=== PATIENT | female | born 1950 | race Two or more races ===

== ENCOUNTER 2017-12-02 21:44 | Emergency (ER) | payer OTHER, MEDICAID ==
[~2017-12-02] VITALS: Ht 167.6 cm; Wt 68.0 kg
--- NOTE | 2017-12-02 21:49 | NUR ---
Brought in by [facility] to Room 2B for complaints of lower abdominal pain, worse today.
[2017-12-02] MEDS ORDERED: ETAN50DI2 SQ (22:02)
--- NOTE | 2017-12-02 22:37 | NUR ---
Seen and evaluated by Dr. Zambrano.
[2017-12-02] MEDS ORDERED: ONDANSETRON 4 MG/2 ML VIAL IV ONE (22:45)
[2017-12-02] MEDS ORDERED: IV NORMAL SALINE 1000 ML BAG IV ONE (22:45)
[2017-12-02] MEDS ORDERED: HYDROMORPHONE 1 MG/1 ML DISP.SYRIN IV ONE (22:45)
[2017-12-02 23:14] LABS: BASOPHILS # (AUTO) 0.1 K/uL (0.0-8.0); BASOPHILS % (AUTO) 0.7 % (0.0-2.0); EOSINOPHILS # (AUTO) 0.2 K/uL (0.0-0.7); EOSINOPHILS % (AUTO) 2.3 % (0.0-7.0); HEMATOCRIT 30.5 % (31.2-41.9); HEMOGLOBIN 9.9 g/dL (10.9-14.3); LYMPHOCYTES # (AUTO) 1.5 K/uL (20.0-40.0); LYMPHOCYTES % (AUTO) 18.7 % (20.5-51.5); MEAN CORPUSCULAR HEMOGLOBIN 26.2 uug (24.7-32.8); MEAN CORPUSCULAR HGB CONC 33 g/dL (32.3-35.6); MEAN CORPUSCULAR VOLUME 80.7 fL (75.5-95.3); MONOCYTES # (AUTO) 0.6 K/uL (2.0-10.0); NEUTROPHILS # (AUTO) 5.5 K/uL (1.8-8.9); NEUTROPHILS % (AUTO) 70.3 % (38.5-71.5); PLATELET COUNT (AUTO) 342 K/uL (179-408); RED BLOOD CELL COUNT(AUTO) 3.78 MIL/uL (3.63-4.92); WHITE BLOOD COUNT (AUTO) 7.9 K/uL (3.8-11.8)
[2017-12-02] MEDS ORDERED: ONDANSETRON 4 MG/2 ML VIAL ONE (23:17)
[2017-12-02] MEDS ORDERED: HYDROMORPHONE 2 MG/1 ML DISP.SYRIN ONE (23:18)
[2017-12-02 23:19] LABS: BILIRUBIN,DIRECT 0.1 mg/dL (0.0-0.2); BILIRUBIN,TOTAL 0.2 mg/dL (0.2-1.0); CREATININE 0.7 mg/dL (0.6-1.3); TOTAL PROTEIN, SERUM 7.1 g/dL (6.4-8.2)
--- NOTE | 2017-12-02 23:21 | NUR ---
Brought to CT Scan per good by Zaki spiral tube winder helper.
[2017-12-02 23:23] LABS: POTASSIUM 2.8 mmol/L (3.5-5.1)
--- NOTE | 2017-12-02 23:23 | NUR ---
Lab called, Pt potassium 2.8. notified.
--- NOTE | 2017-12-02 23:50 | NUR ---
Back from CT, procedure completed.
--- NOTE | 2017-12-02 23:52 | NUR ---
Razo Cath Fr. 16 inserted aseptically and atraumatically after adequate explanations. Urine spec sent to lab.
[2017-12-03 00:20] LABS: *BILIRUBIN,URIN NEGATIVE (NEGATIVE); *BLOOD, URINE Trace-intact (NEGATIVE); *CLARITY,URINE CLOUDY (CLEAR); *COLOR,URINE YELLOW (YELLOW); *KETONES,URINE NEGATIVE (NEGATIVE); *PROTEIN,URINE 2+ (NEGATIVE); LEUKOCYTE ESTERASE ,URINE 3+ (NEGATIVE); NITRITE, URINE POSITIVE (NEGATIVE); PH,URINE 6.5 (5.0-8.0); UGLUCOSE NEGATIVE (NEGATIVE)
[2017-12-03 00:33] LABS: BACTERIA,URINE MANY /HPF (NONE SEEN); SQUAMOUS EPITHELIAL CELL,UR FEW /HPF (NONE SEEN); WBC,URINE 80-100 /HPF (0-3)
--- NOTE | 2017-12-03 01:48 | NUR ---
[facility] EDUARP called. Spoke with Josey. Will have Newcomb call Dr Zambrano
[2017-12-03] MEDS ORDERED: ONDANSETRON IV *ER 4 MG/2 ML VIAL IV ONE ×2 (02:00→04:30)
[2017-12-03] MEDS ORDERED: MORPHINE SULFATE 4 MG/1 ML DISP.SYRIN IV ONE (02:00)
[2017-12-03] MEDS ORDERED: MORPHINE SULFATE 4 MG/1 ML DISP.SYRIN ONE (02:09)
[2017-12-03] MEDS ORDERED: ONDANSETRON 4 MG/2 ML VIAL ONE ×3 (02:09→08:29)
[2017-12-03] MEDS ORDERED: METRONIDAZOLE 500 MG/NS 100 ML PIGGYBACK IV ONE (02:45)
[2017-12-03] MEDS ORDERED: LEVOFLOXACIN 750 MG/D5W 150 ML PIGGYBACK IV ONE (02:45)
--- NOTE | 2017-12-03 02:45 | NUR ---
Aydin LONGORIA returned call and spoke with Dr. Zambrano. CT abd/pelvis and CXR reports faxed to by Abdelrahman Webster RN.
[2017-12-03] MEDS ORDERED: LEVOFLOXACIN 750MG/D5W 150 ML IV ONE (02:52)
[2017-12-03] MEDS ORDERED: METRONIDAZOLE 500 MG/NS 100ML 100 ML IV ONE (02:53)
--- NOTE | 2017-12-03 03:30 | NUR ---
Expressing desire to be admitted instead here at [facility] but understands reason for transfer arrangements. Pt signed Patient Transfer Acknowledgement form.
--- NOTE | 2017-12-03 04:00 | NUR ---
CALLED NARESH ZAMAN REQUESTED BY DR HARTLEY FOR CONSULT. WAITING FOR CALL BACK
--- NOTE | 2017-12-03 04:20 | NUR ---
Phone call made to Dr. Ji Fountain. Awaiting call back at this time.
--- NOTE | 2017-12-03 05:00 | NUR ---
CALLED NARESH REID. WAITING FOR CALL BACK
--- NOTE | 2017-12-03 05:00 | NUR ---
Pt has been nauseated; emesis x2 to moderate amount brownish fluid. Has received IV Zofran x3 total, with relief. Now pt sleeping and in no apparent acute distress.
--- NOTE | 2017-12-03 05:33 | NUR ---
Dr Fountain spoke with Dr Zambrano at this time.
--- NOTE | 2017-12-03 05:42 | NUR ---
DR HARTLEY SPOKE WITH DR KEVIN LONGORIA FROM [facility]. DR BROWN WILL TRANSFER PATIENT TO [facility]. WAITING FOR TRANSFER INFO
--- NOTE | 2017-12-03 05:43 | NUR ---
spoke with Aydin LONGORIA. Plans to transfer pt to [facility].
[2017-12-03] MEDS: POTASSIUM CHLORIDE 50 ML IV SCH ×2 (06:13→07:07)
--- NOTE | 2017-12-03 06:13 | NUR ---
Serum potassium level 2.[address] Zambrano ordered IV KCl total 20 mEq. Started first of two bags IV KCl.
[2017-12-03] MEDS ORDERED: IV NORMAL SALINE 1000 ML BAG IV ONE (06:15)
[2017-12-03] MEDS ORDERED: POTASSIUM CHLORIDE 50 ML ONE ×2 (06:17→07:11)
[2017-12-03] MEDS ORDERED: PANTOPRAZOLE SODIUM IV 80 MG in IV DEXTROSE 5% 100 ML IV ONE (07:00)
[2017-12-03] MEDS ORDERED: PANTOPRAZOLE SODIUM 40 MG VIAL ONE (07:04)
--- NOTE | 2017-12-03 07:07 | NUR ---
Above IV KCl infusion completed and second bag started. Endorsed to Day Shift CECY Rogers.
--- NOTE | 2017-12-03 07:14 | NUR ---
IV Protonix infusion started at 0700 and ended at 0714.
--- NOTE | 2017-12-03 07:36 | NUR ---
sbar report received from [facility]. Patient waiting for Opp steel pickler/ Patient expressed preference to stay here. advised re: insurance
--- NOTE | 2017-12-03 07:42 | NUR ---
patient is receiving 2nd dose of IV kcl Toatal dose 20meq
[2017-12-03] MEDS ORDERED: HYDROMORPHONE 2 MG/1 ML DISP.SYRIN ONE (08:29)
[2017-12-03] MEDS ORDERED: HYDROMORPHONE 1 MG/1 ML DISP.SYRIN IV ONE (08:30)
[2017-12-03] MEDS ORDERED: ONDANSETRON 4 MG/2 ML VIAL IV ONE (08:30)
--- NOTE | 2017-12-03 08:31 | NUR ---
medicated for abdominal pain and nausea. Paraamedics here to pick remover patient. report given to Blanca TURNER and to paramedics as kelle.
[2017-12-03 09:01] VITALS: BP 109/61
== END 2017-12-03 09:02 | disposition short-term general hospital (02) ==
LOC: ER 21:46
DX: K27.5 Chronic or unspecified peptic ulcer, site unspecified, with perforation (principal); R35.0 Frequency of micturition; Z88.2 Allergy status to sulfonamides; Z88.8 Allergy status to other drugs, medicaments and biological substances
CPT/HCPCS: 36415; 70030-TC; 71045; 83605; 83690; 85025; 87040; 87086; 93005; A4663; C9113; J1170; J1956; J2270; J2405; J3480; J3490; J7030; J7060

== ENCOUNTER 2020-05-30 17:21 | Inpatient (IN) | payer OTHER ==
[~2020-05-30] VITALS: Ht 167.6 cm; Wt 63.5 kg
[~2020-05-30 17:21] MED LIST: ETAN50SY SQ
[2020-05-30] MEDS ORDERED: IV NORMAL SALINE 1000 ML BAG IV ONE (17:30)
[2020-05-30] MEDS ORDERED: ACETAMINOPHEN ES 500 MG TABLET PO ONE (17:30)
[2020-05-30] MEDS ORDERED: ACETAMINOPHEN ES 500 MG TABLET ONE (17:48)
--- NOTE | 2020-05-30 18:18 | NUR ---
unable to obtain a 2nd IV line, and unable to draw blood d/t bombsight specialist attempting twice and unsuccessul. Per Mary Jo, bombsight specialist who attempted to draw, states there is no other bombsight specialist until 1900.
[2020-05-30 18:40] LABS: *BILIRUBIN,URIN 1+ (NEGATIVE); *BLOOD, URINE 3+ (NEGATIVE); *COLOR,URINE YELLOW (YELLOW); *KETONES,URINE TRACE (NEGATIVE); LEUKOCYTE ESTERASE ,URINE 3+ (NEGATIVE); NITRITE, URINE NEGATIVE (NEGATIVE); UGLUCOSE TRACE (NEGATIVE)
[2020-05-30 18:47] LABS: *CLARITY,URINE TURBID (CLEAR); BACTERIA,URINE MODERATE /HPF (NONE SEEN); RBC,URINE 80-100 /HPF (0-3); SQUAMOUS EPITHELIAL CELL,UR MODERATE /HPF (NONE SEEN); WBC,URINE TNTC /HPF (0-3)
--- NOTE | 2020-05-30 18:56 | NUR ---
femoral stick done by Dr. Hare for blood specimen collection.
--- NOTE | 2020-05-30 19:02 | NUR ---
Report given to Alix.
[2020-05-30 19:07] LABS: BASOPHILS % (AUTO) 0.2 % (0.0-2.0); EOSINOPHILS % (AUTO) 0.1 % (0.0-7.0); HEMATOCRIT 33.5 % (31.2-41.9); HEMOGLOBIN 11.1 g/dL (10.9-14.3); LYMPHOCYTES # (AUTO) 0.4 K/uL (20.0-40.0); LYMPHOCYTES % (AUTO) 3.8 % (20.5-51.5); MEAN CORPUSCULAR HEMOGLOBIN 29.8 uug (24.7-32.8); MEAN CORPUSCULAR HGB CONC 33 g/dL (32.3-35.6); MONOCYTES # (AUTO) 0.1 K/uL (2.0-10.0); NEUTROPHILS % (AUTO) 94.9 % (38.5-71.5); PLATELET COUNT (AUTO) 184 K/uL (179-408); RED BLOOD CELL COUNT(AUTO) 3.72 MIL/uL (3.63-4.92); WHITE BLOOD COUNT (AUTO) 10.5 K/uL (3.8-11.8)
[2020-05-30 19:14] LABS: CREATININE 1.7 mg/dL (0.6-1.3); POTASSIUM 3.1 mmol/L (3.5-5.1)
[2020-05-30 19:27] LABS: BILIRUBIN,TOTAL 0.9 mg/dL (0.2-1.0); TOTAL PROTEIN, SERUM 5.8 g/dL (6.4-8.2)
[2020-05-30] MEDS ORDERED: CEFTRIAXONE 1 G in IV DEXTROSE 5% 50 ML IV ONE (19:30)
[2020-05-30] MEDS ORDERED: IV NS 1000 ML 1,000 ML IV ONE (19:30)
--- NOTE | 2020-05-30 19:30 | NUR ---
Received patient in shift report
[2020-05-30] MEDS ORDERED: CEFTRIAXONE /D5W 50ML IVPB **ER PYXIS IV ONE (19:51)
[2020-05-30 19:53] LABS: ABG BASE EXCESS -10.8 mmol/L; ABG HCO3 11.7 mmol/L; ABG PCO2 18.7 mmHg (35.0-45.0); ABG PH 7.414 (7.350-7.450); ABG PO2 90.2 mmHg (75.0-100.0); ABG SITE RIGHT RADIAL; ABG TOTAL HEMOGLOBIN 11.2 G/dL (12.0-16.0); COHb 0.8 % (0.5-1.5); MetHb 0.3 % (0.0-1.5); O2Hb 96.4 % (94.0-97.0); VENT MODE Room Air
[2020-05-30] MEDS ORDERED: NOREPINEPHRINE BITARTRATE 8 MG in IV NORMAL SALINE 242 ML IV PRN (20:00)
[2020-05-30] MEDS ORDERED: PIPERACILLIN SODIUM/TAZOBACTAM 3.375 G in IV DEXTROSE 5% 50 ML IV ONE (20:00)
[2020-05-30] MEDS ORDERED: PIPERACILLIN/TAZOBACTAM/D5W 50 ML IV ONE (20:18)
[2020-05-30] MEDS ORDERED: NOREPINEPHRINE BITARTRATE 4 MG/4 ML VIAL IV ONE (20:22)
--- NOTE | 2020-05-30 20:52 | NUR ---
Dr. Hare on panel call with Dr. Efra Veliz.
[2020-05-30] MEDS ORDERED: AZITHROMYCIN IV 500 MG in IV DEXTROSE 5% 250 ML IV ONE (21:00)
[2020-05-30] MEDS ORDERED: AZITHROMYCIN 500MG/ D5W 250ML IVPB **ER PYXIS ONLY IV ONE (21:06)
[2020-05-30] MEDS ORDERED: AZITHROMYCIN IV 500 MG in IV DEXTROSE 5% 250 ML IV SCH (21:45)
[2020-05-30] MEDS ORDERED: POTASSIUM CHLORIDE 20 MEQ in IV D5/ 0.9% NACL 1,000 ML IV PRN (21:45)
[2020-05-30] MEDS ORDERED: ONDANSETRON 4 MG/2 ML VIAL IV PRN (21:45)
[2020-05-30] MEDS ORDERED: PHENYLEPHRINE IV 100 MG in IV NORMAL SALINE 240 ML IV PRN (21:45)
[2020-05-30] MEDS ORDERED: ACETAMINOPHEN 650 MG SUPP.RECT RC PRN (21:45)
[2020-05-30] MEDS ORDERED: MORPHINE SULFATE 2 MG/1 ML DISP.SYRIN IV PRN (21:45)
[2020-05-30] MEDS ORDERED: CEFTRIAXONE 1 G in IV DEXTROSE 5% 50 ML IV SCH (21:45)
--- NOTE | 2020-05-31 | NUR ---
Femoral triple lumen central line placed by MD mishra
[2020-05-31] MEDS ORDERED: NOREPINEPHRINE BITARTRATE 4 MG/4 ML VIAL IV ONE ×4 (00:47→06:03)
[2020-05-31] MEDS ORDERED: IV DEXTROSE 5% +20 MEQ KCL 1,000 ML IV ONE (00:53)
[2020-05-31] MEDS ORDERED: METO25TA6 PO (00:55)
[2020-05-31] MEDS ORDERED: CHOL10002 PO (00:55)
[2020-05-31] MEDS ORDERED: LORA10TA7 PO (00:55)
[2020-05-31] MEDS ORDERED: TAMS-3 PO (00:55)
[2020-05-31] MEDS ORDERED: ONDA4TAB5 PO (00:55)
[2020-05-31] MEDS ORDERED: AZEL137S7 (00:55)
[2020-05-31] MEDS ORDERED: HYDR-3980 PO (00:55)
[2020-05-31] MEDS ORDERED: DICL100G16 TP (00:55)
[2020-05-31] MEDS ORDERED: MONT10TA22 PO (00:55)
[2020-05-31] MEDS ORDERED: MULT-594 PO (00:55)
[2020-05-31] MEDS ORDERED: SENN-18 PO (00:55)
[2020-05-31] MEDS ORDERED: DIPH25CA83 PO (00:55)
[2020-05-31] MEDS ORDERED: ASCO500C18 PO (00:55)
[2020-05-31] MEDS ORDERED: POTA10TA21 PO (00:55)
[2020-05-31] MEDS ORDERED: DOCU-141 PO (00:55)
[2020-05-31] MEDS ORDERED: CICL15CR12 TP (00:55)
[2020-05-31] MEDS ORDERED: PHENYLEPHRINE 10 MG/1 ML VIAL ONE (06:00)
--- NOTE | 2020-05-31 06:41 | NUR ---
No signs of acute distress noted
[2020-05-31] MEDS ORDERED: NOREPINEPHRINE BITARTRATE 32 MG in IV NORMAL SALINE 218 ML IV PRN (06:45)
[2020-05-31 07:11] LABS: BASOPHILS # (AUTO) 0.1 K/uL (0.0-8.0)
[2020-05-31 07:16] LABS: BASOPHILS % (AUTO) 0.1 % (0.0-2.0); EOSINOPHILS # (AUTO) 13.6 K/uL (0.0-0.7); HEMATOCRIT 31.6 % (31.2-41.9); LYMPHOCYTES # (AUTO) 0.8 K/uL (20.0-40.0); LYMPHOCYTES % (AUTO) 1.9 % (20.5-51.5); MEAN CORPUSCULAR HEMOGLOBIN 29.2 uug (24.7-32.8); MEAN CORPUSCULAR HGB CONC 32 g/dL (32.3-35.6); MEAN CORPUSCULAR VOLUME 92.7 fL (75.5-95.3); MONOCYTES # (AUTO) 0.7 K/uL (2.0-10.0); MONOCYTES % (AUTO) 1.6 % (0.0-11.0); NEUTROPHILS # (AUTO) 28.7 K/uL (1.8-8.9); NEUTROPHILS % (AUTO) 65.4 % (38.5-71.5); PLATELET COUNT (AUTO) 154 K/uL (179-408); RED BLOOD CELL COUNT(AUTO) 3.41 MIL/uL (3.63-4.92)
[2020-05-31 07:25] LABS: WHITE BLOOD COUNT (AUTO) 43.8 K/uL (3.8-11.8)
[2020-05-31 07:36] LABS: ALKALINE PHOSPHATASE 109 U/L (50-136); ASPARTATE AMINOTRANSFERASE 27 U/L (15-37); CARBON DIOXIDE 14 mmol/L (21-32); CHLORIDE 102 mmol/L (98-107); CHOLESTEROL 61 mg/dL (<200); CREATININE 1.8 mg/dL (0.6-1.3); GLUCOSE 170 mg/dL (74-106); HDL CHOLESTEROL 11 mg/dL (40-60); MAGNESIUM 1.4 mg/dL (1.8-2.4); PHOSPHOROUS 1.8 mg/dL (2.5-4.9); POTASSIUM 3.6 mmol/L (3.5-5.1); TOTAL PROTEIN, SERUM 5.8 g/dL (6.4-8.2); TRIGLYCERIDES 143 MG/DL (30-150); UREA NITROGEN, BLOOD 30 mg/dL (7-18)
[2020-05-31 07:45] LABS: ALANINE AMINOTRANSFERASE < 6 U/L (14-59)
[2020-05-31] MEDS: MAGNESIUM SULFATE/D5W 100 ML IV SCH ×2 (07:45→08:45)
[2020-05-31] MEDS ORDERED: IV NS 1000 ML 1,000 ML IV PRN (07:45)
[2020-05-31 08:04] LABS: THYROID STIMULATING HORMONE 0.486 mIU/mL (0.358-3.740)
--- NOTE | 2020-05-31 08:09 | NUR ---
recieved critical value of lactic acid, not contacted it is trending down. Primary nurse Abhishek made aware.
[2020-05-31] MEDS ORDERED: MAGNESIUM SULFATE/D5W 400 ML ONE (08:34)
[2020-05-31] MEDS ORDERED: ONDANSETRON 4 MG/2 ML VIAL ONE (08:55)
[2020-05-31 08:56] VITALS: BP 87/53
[2020-05-31] MEDS ORDERED: ENOXAPARIN SODIUM 30 MG/0.3 ML DISP.SYRIN SUBCUT SCH (09:00)
[2020-05-31] MEDS ORDERED: DEXAMETHASONE SOD PHOSPHATE 4 MG INJ IV SCH (09:00)
[2020-05-31] MEDS ORDERED: FAMOTIDINE. 20 MG/2 ML VIAL IV SCH (09:00)
[2020-05-31] MEDS ORDERED: PANTOPRAZOLE SODIUM 40 MG VIAL IV SCH (09:00)
[2020-05-31] MEDS ORDERED: DEXAMETHASONE SOD PHOSPHATE 10 MG INJ ONE (09:07)
[2020-05-31] MEDS ORDERED: ENOXAPARIN SODIUM 30 MG/0.3 ML DISP.SYRIN ONE (09:07)
[2020-05-31] MEDS ORDERED: FAMOTIDINE. 20 MG/2 ML VIAL IV ONE (09:08)
--- NOTE | 2020-05-31 09:15 | NUR ---
DR JOSEPH EVALUATED THE PT. PT WAS MEDICATED ACCORDING TO DR JOSEPH ORDERS. PT TOLERATED TO MEDICATION WITHOUT COMPLICATIONS. CONTINUE TO MONITOR THE PT.
[2020-05-31] MEDS ORDERED: MORPHINE SULFATE 2 MG/1 ML DISP.SYRIN ONE (09:18)
[2020-05-31] MEDS ORDERED: SODIUM BICARBONATE 8.4% 50 MEQ/50 ML DISP.SYRIN IV ONE (09:27)
[2020-05-31] MEDS ORDERED: EPINEPHRINE 1:10,000 1 MG/10 ML DISP.SYRIN MC ONE (09:27)
--- NOTE | 2020-05-31 09:46 | NUR ---
PT STATED THAT SHE FEELS MORE SHORT OF BREATH. PT WAS PLACED ON O2 3 LITERS VIA N/C
--- NOTE | 2020-05-31 10:33 | NUR ---
BATSHEVA YASMEEN WAS CALLED AT 1008 BECAUSE PT BECOME UNRESPONSIVE WITHOUT PALPABLE H/R, AND LOW B/P, AND LOW O2sat. ALS CPR WAS STARTED UNDER DIRECT SUPERVISION OF DR BREWER.
--- NOTE | 2020-05-31 10:36 | NUR ---
AT [id number] PT WAS PRONOUNCED BY DR BREWER, CPR WAS STOPPED.
--- NOTE | 2020-05-31 11:38 | NUR ---
PT'S SON MERNA ODOM WAS CALLED AT 0945 AND AT 1005 . MESSAGE WAS LEFT.
--- NOTE | 2020-05-31 12:01 | NUR ---
[employer] WAS CALLED , TALKED TO KARLO, PT CASE WAS DECLINED, CASE # [id number]. CALLED ENDOSCOPIC TECHNICIAN OFFICE WAS CALLED , MESSAGE WAS LEFT.
--- NOTE | 2020-05-31 12:40 | NUR ---
CORPORATE EVENTS DIRECTOR OFFICE WAS CALLED , SPOKE TO REBEKAH, SHE DECLINED THE CASE.
--- NOTE | 2020-05-31 12:41 | NUR ---
DR BREWER TALKED TO 's THEA GUNDERSON.
--- NOTE | 2020-05-31 13:39 | NUR ---
PT's THEA IN [employer] CAME TO SEE THE PT. SHE TALKED TO NURSING DATA PROCESSING MECHANIC ABOUT MORTUARY ARRANGEMENTS.
--- NOTE | 2020-05-31 14:43 | NUR ---
PT's BODY WAS TRANSFERED TO [facility].
[2020-05-31] MEDS ORDERED: CEFTRIAXONE 1 G in IV DEXTROSE 5% 50 ML IV SCH (20:00)
[2020-05-31 20:09] LABS: NEUTROPHILS % (MANUAL) 72 % (42-75)
[2020-05-31 20:10] LABS: BAND % (MANUAL) 12 % (0-10); LYMPHOCYTES % (MANUAL) 2 % (20-40); MONOCYTES % (MANUAL) 11 % (2-10)
[2020-05-31 20:31] LABS: METAMYELOCYTES % 1 % (0-1); MYELOCYTES % 2 % (0-0)
[2020-05-31] MEDS ORDERED: AZITHROMYCIN IV 500 MG in IV DEXTROSE 5% 250 ML IV SCH (21:00)
== END 2020-05-31 09:28 | disposition expired | DRG 871 ==
LOC: ER 17:21 → TRANSITION 05-31 06:26
PROVIDERS: ADMIT Internal Medicine; ATTEND Internal Medicine
PROC: 06HM33Z Insertion of Infusion Device into Right Femoral Vein, Percutaneous Approach (ICD-10-PCS; principal; 2020-05-31)
PROC: 5A12012 Performance of Cardiac Output, Single, Manual (ICD-10-PCS; 2020-05-31)
DX: A41.89 Other specified sepsis (principal); U07.1 COVID-19; E43 Unspecified severe protein-calorie malnutrition; G92 Toxic encephalopathy; J12.82 Pneumonia due to coronavirus disease 2019; J96.01 Acute respiratory failure with hypoxia; N17.0 Acute kidney failure with tubular necrosis; R65.21 Severe sepsis with septic shock; D68.69 Other thrombophilia; N39.0 Urinary tract infection, site not specified; E87.2 Acidosis; E87.6 Hypokalemia; M19.012 Primary osteoarthritis, left shoulder; M06.9 Rheumatoid arthritis, unspecified; Z96.653 Presence of artificial knee joint, bilateral; I11.0 Hypertensive heart disease with heart failure; R73.9 Hyperglycemia, unspecified; Z68.22 Body mass index [BMI] 22.0-22.9, adult; I50.9 Heart failure, unspecified; Z74.09 Other reduced mobility
CPT/HCPCS: 36415; 36600; 70030-TC; 71045; 83605; 83615; 83735; 84100; 84443; 85025; 85730; 86140; 87040; 87077; 87086; 87400; 93005; A4663; A9150; C1758; G0378; J0171; J0456; J0696; J1100; J1650; J2270; J2370; J2405; J2543; J3475; J3480; J3490; J7030; J7042; J7050; U0003